=== PATIENT | female | born 1945 | race Caucasian/White ===

== ENCOUNTER 2016-10-16 19:38 | Emergency (ER) | payer OTHER, BC ==
[~2016-10-16] VITALS: Ht 157.5 cm; Wt 94.4 kg
[~2016-10-16 19:38] MED LIST changes: -NAPR1TAB9 PO; -OXGN; -OXYC-57 PO
[2016-10-16 19:47] VITALS: TEMP 36.3; Ht 157.5 cm; Wt 94.4 kg
[2016-10-16] MEDS ORDERED: ONDANSETRON 8 MG/54 ML D5W IV STA (20:47)
[2016-10-16 21:15] VITALS: O2SAT 96
[2016-10-16 21:33] LABS: HEMATOCRIT 37.6 % (37-47); MEAN CELL VOLUME 86.4 fL (80-100); MEAN CORPUSCULAR HGB CONC 33.5 g/dl (32-36); MEAN PLATELET VOLUME 9.6 fL (7.4-10.4); PLATELET COUNT 311 K/uL (130-400); RED BLOOD COUNT 4.35 M/uL (4.2-5.4); WHITE BLOOD COUNT 9.12 K/uL (4.8-10.8)
[2016-10-16 21:43] LABS: INR 0.9 (0.9-1.1); PARTIAL THROMBOPLASTIN RATIO 0.9; PROTHROMBIN TIME (PATIENT) 10.1 SECONDS (9.0-12.0)
[2016-10-16 22:02] LABS: ALB/GLOB RATIO 0.7 (0.9-2); ALKALINE PHOSPHATASE 71 U/L (45-117); BLOOD UREA NITROGEN 16 mg/dl (7-18); BUN/CREATININE RATIO 14.5 (10-20); CALCIUM 8.6 mg/dl (8.5-10.1); CARBON DIOXIDE 24 mmol/L (21-32); CHLORIDE 105 mmol/L (98-107); CKMB/CK RATIO 1.1 (0-3.0); POTASSIUM 3.7 mmol/L (3.5-5.1); SODIUM 142 mmol/L (136-145)
[2016-10-16 22:12] LABS: BASO % 0.2 %; BASO ABS # 0.02 K/uL (0-0.2); COMPLETE YES; IG% 0.3 %; LYMPH ABS # 4.56 K/uL (1.2-3.4); MONO % 6.7 %; NEUT % 40.8 %
[2016-10-16 22:22] LABS: ALT/SGPT 22 U/L (12-78); AST/SGOT 18 U/L (15-37); GLUCOSE 146 mg/dl (70-99)
--- NOTE | 2016-10-16 22:40 | DIAGNOSTIC IMAGING REPORT ---
BILATERAL LOWER EXTREMITY VENOUS DOPPLER CLINICAL HISTORY: Shortness of breath. Hypoxia. COMPARISON STUDY: No previous studies for comparison. TECHNIQUE: Sonography of the deep venous system of the bilateral lower extremities was performed. Compression and augmentation were evaluated. FINDINGS: The bilateral common femoral, superficial femoral and popliteal veins were compressible. Augmentation was normal. Flow was shown within the deep calf vessels. IMPRESSION: No evidence of deep venous thrombus within the bilateral lower extremities. Electronically signed by: Stalin Agosto M.D. 10/16/2016 10:39 PM Dictated Date/Time: 10/16/2016 10:39 PM
[2016-10-16] MEDS ORDERED: METOCLOPRAMIDE HCL INJ 5 MG/ML 2 ML VIAL IV STA (23:38)
[2016-10-16] MEDS ORDERED: METHYLPREDNISOLONE 125 MG VIAL IV STA (23:41)
[2016-10-16] MEDS ORDERED: OPTIRAY 320 IV PRN (23:45)
[2016-10-16] MEDS: DiphenhydrAMINE HCL 50 MG/ML VIAL IV STA (23:48)
[2016-10-17] MEDS: DiphenhydrAMINE HCL 50 MG/ML VIAL IV STA (00:04)
[2016-10-17 01:28] VITALS: BP 128/75; PULSE 78; O2SAT 95
--- NOTE | 2016-10-17 02:29 | EMERGENCY ROOM VISIT NOTE ---
History Report prepared by aJmal: Shadi Le Under the Supervision of: Dr. Luis Davis M.D. First contact with patient: 20:33 Chief Complaint: SHORTNESS OF BREATH Stated Complaint: SOB, HYPOXIA Nursing Triage Summary: see triage note. History of Present Illness The patient is a 71 year old female who presents to the Emergency Room with complaints of shortness of breath that began 6 months ago. Her shortness of breath worsens with exertion. The patient has a past medical history of Lymphoma. She had her first occurrence 8 or 9 years ago. She had a recent occurrence in Aug 2016. She had a 1.1 cm mass on a PET scan in her upper lobe of unilateral lung. The mass grew to 1.7 cm today. She just finished her fourth round of chemotherapy, due to her physician thinking that it could be lymphoma. She had a chest x-ray which was negative and a VQ scan with intermediate probability, before coming to the ER today. Due to the patient's shortness of breath, her physician was worried that the mass in her lung could be a PE. In their office today, the patient's O2 Sat was 94%. It has not gone below 90% that they area aware of. 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 She also has a cough. She does not have a history of blood clots. She does not take blood thinners. Patient denies LOC, headache, fevers, chills, diaphoresis, visual changes, neck pain, chest pain, nausea, abdominal pain, back pain, melena , hematochezia, urinary symptoms, numbness, weakness, lymphadenopathy, rash, or other complaints. Source of History: patient Onset: 6 months ago Position: other (Respiratory System) Symptom Intensity: mild Quality: other (shortness of breath) Modifying Factors (Worsening): exertion Associated Symptoms: + cough, + vomiting Review of Systems See HPI for pertinent positives and negatives. A total of ten systems were reviewed and were otherwise negative. Past Medical & Surgical Medical Problems: (1) Lymphoma (2) Port-a-cath in place Family History Not pertinent due to the patient's age. Social History Smoking Status: Never Smoker Smokeless Tobacco Use: No Drug Use: none Marital Status: Housing Status: lives with significant other Occupation Status: retired Current/Historical Medications Scheduled Metformin Hcl (Glucophage), 500 MG PO BID Solifenacin (Vesicare), 5 MG PO DAILY Allergies Uncoded Allergies: IV CONTRAST (Allergy, Unknown, vomiting and flushing, 09/23/15) Physical Exam Vital Signs Date Time Temp Pulse Resp B/P Pulse Ox O2 Delivery O2 Flow Rate FiO2 10/17/16 01:28 78 20 128/75 95 10/17/16 01:03 71 18 10/17/16 00:58 70 18 162/78 94 10/17/16 00:42 72 16 178/92 96 10/17/16 00:38 76 19 10/16/16 23:38 73 17 10/16/16 23:33 74 16 10/16/16 23:28 138/58 95 10/16/16 22:03 74 18 94 10/16/16 21:58 154/75 10/16/16 21:48 74 10/16/16 21:28 168/74 10/16/16 21:18 75 16 168/79 96 Room Air 10/16/16 21:15 96 Room Air 10/16/16 20:45 97 Room Air 10/16/16 19:47 36.3 86 18 159/73 97 Room Air Physical Exam GENERAL: Awake, alert, well-appearing, in no distress HENT: Normocephalic, atraumatic. Oropharynx unremarkable. EYES: Normal conjunctiva. Sclera non-icteric. NECK: Supple. No nuchal rigidity. FROM. No JVD. RESPIRATORY: Clear to auscultation. CARDIAC: Regular rate, normal rhythm. Extremities warm and well perfused. Pulses equal. ABDOMEN: Soft, non-distended. No tenderness to palpation. No rebound or guarding. No masses. RECTAL: Deferred. MUSCULOSKELETAL: Chest examination reveals no tenderness. No joint edema. LOWER EXTREMITIES: Calves are equal size bilaterally and non-tender. Mild bilateral edema. No discoloration. NEURO: Normal sensorium. No sensory or motor deficits noted. SKIN: No rash or jaundice noted. Medical Decision & Procedures ER Provider Diagnostic Interpretation: Radiology results are stated below per my review and radiologist interpretation: BILATERAL LOWER EXTREMITY VENOUS DOPPLER CLINICAL HISTORY: Shortness of breath. Hypoxia. COMPARISON STUDY: No previous studies for comparison. TECHNIQUE: Sonography of the deep venous system of the bilateral lower extremities was performed. Compression and augmentation were evaluated. FINDINGS: The bilateral common femoral, superficial femoral and popliteal veins were compressible. Augmentation was normal. Flow was shown within the deep calf vessels. IMPRESSION: No evidence of deep venous thrombus within the bilateral lower extremities. Electronically signed by: Stalin Agosto M.D. 10/16/2016 10:39 PM Dictated Date/Time: 10/16/2016 10:39 PM CTA CHEST: Comparison 04/10 No evidence for PE. Stable appearing airspace opacities abutting the mediastinum in the right middle lobe and right upper lobe. Likely atelectasis and/or scar. Bilateral ground-glass opacities. Appearance is similar to prior. May represent hypoventilatory changes/atelectasis. Hiatal hernia, mildly prominent upper abdominal nodes and other unchanged findings. Radiologist: Bari Dean M.D. Laboratory Results 10/16/16 21:02 Red Blood Count 4.35, Mean Corpuscular Volume 86.4, Mean Corpuscular Hemoglobin 29.0, Mean Corpuscular Hemoglobin Concent 33.5, Mean Platelet Volume 9.6, Neutrophils (%) (Auto) 40.8, Lymphocytes (%) (Auto) 50.0, Monocytes (%) (Auto) 6.7, Eosinophils (%) (Auto) 2.0, Basophils (%) (Auto) 0.2, Neutrophils # (Auto) 3.72, Lymphocytes # (Auto) 4.56, Monocytes # (Auto) 0.61, Eosinophils # (Auto) 0.18, Basophils # (Auto) 0.02 10/16/16 21:02 Test 10/16/16 21:02 White Blood Count 9.12 K/uL (4.8-10.8) Red Blood Count 4.35 M/uL (4.2-5.4) Hemoglobin 12.6 g/dL (12.0-16.0) Hematocrit 37.6 % (37-47) Mean Corpuscular Volume 86.4 fL (80-100) Mean Corpuscular Hemoglobin 29.0 pg (25-34) Mean Corpuscular Hemoglobin Concent 33.5 g/dl (32-36) Platelet Count 311 K/uL (130-400) Mean Platelet Volume 9.6 fL (7.4-10.4) Neutrophils (%) (Auto) 40.8 % Lymphocytes (%) (Auto) 50.0 % Monocytes (%) (Auto) 6.7 % Eosinophils (%) (Auto) 2.0 % Basophils (%) (Auto) 0.2 % Neutrophils # (Auto) 3.72 K/uL (1.4-6.5) Lymphocytes # (Auto) 4.56 K/uL (1.2-3.4) Monocytes # (Auto) 0.61 K/uL (0.11-0.59) Eosinophils # (Auto) 0.18 K/uL (0-0.5) Basophils # (Auto) 0.02 K/uL (0-0.2) RDW Standard Deviation 44.8 fL (36.4-46.3) RDW Coefficient of Variation 14.4 % (11.5-14.5) Immature Granulocyte % (Auto) 0.3 % Immature Granulocyte # (Auto) 0.03 K/uL (0.00-0.02) Prothrombin Time 10.1 SECONDS (9.0-12.0) Prothromb Time International Ratio 0.9 (0.9-1.1) Activated Partial Thromboplast Time 22.2 SECONDS (21.0-31.0) Partial Thromboplastin Ratio 0.9 Anion Gap 13.0 mmol/L (3-11) Est Creatinine Clear Calc Drug Dose 50.2 ml/min Estimated GFR () 58.5 Estimated GFR (Non- 50.5 BUN/Creatinine Ratio 14.5 (10-20) Calcium Level 8.6 mg/dl (8.5-10.1) Total Bilirubin 0.3 mg/dl (0.2-1) Aspartate Amino Transf (AST/SGOT) 18 U/L (15-37) Alanine Aminotransferase (ALT/SGPT) 22 U/L (12-78) Alkaline Phosphatase 71 U/L (45-117) Total Creatine Kinase 76 U/L (26-192) Creatine Kinase MB 0.8 ng/ml (0.5-3.6) Creatine Kinase MB Ratio 1.1 (0-3.0) Troponin I < 0.015 ng/ml (0-0.045) Pro-B-Type Natriuretic Peptide 52 pg/ml (0-900) Total Protein 7.6 gm/dl (6.4-8.2) Albumin 3.1 gm/dl (3.4-5.0) Globulin 4.5 gm/dl (2.5-4.0) Albumin/Globulin Ratio 0.7 (0.9-2) Laboratory results reviewed by me Medications Administered Medications (Trade) Dose Ordered Sig/Jerrica Route Start Time Stop Time Status Last Admin Dose Admin Ondansetron HCl (Zofran 8mg Iv) 8 mg NOW STAT IV 10/16/16 20:47 10/16/16 20:50 DC 10/16/16 21:30 8 MG Metoclopramide HCl (Reglan Inj) 10 mg NOW STAT IV 10/16/16 23:38 10/16/16 23:39 DC 10/16/16 23:49 10 MG Methylprednisolone Sodium Succinate (Solu-Medrol IV) 125 mg NOW STAT IV 10/16/16 23:41 10/16/16 23:42 DC 10/16/16 23:49 125 MG ECG Indication: SOB/dyspnea Rate (beats per minute): 73 Rhythm: normal sinus Findings: no acute ischemic change, no ectopy ED Course 2032: The patient was evaluated in room C6. A complete history and physical exam was performed. 2046: Ondansetron HCl 8 mg IV 2338: Benadryl Inj 25 mg IV, Reglan Inj 10 mg IV 2341: Methylprednisolone Sodium Succinate 125 mg IV 0141: I reevaluated the patient. Discussed results and discharge instructions: She verbalized understanding and agreement. She will be following up with her oncologist. The patient is ready for discharge. Medical Decision Triage Nursing notes reviewed. The patient's presentation and history were concerning for shortness of breath. Etiologies such as pneumonia, COPD, reactive airway disease, CHF, cardiac ischemia, pulmonary embolism, pneumothorax, musculoskeletal, infections, gastrointestinal, as well as others were entertained. The patient presented with an indeterminate VQ scan. She had blood work obtained. She had a negative CBC, coagulation factors, chemistry panel, LFTs, and cardiac markers. BNP was negative. Her outpatient chest x-ray was also unremarkable. ECG was negative. the patient had negative bilateral lower leg ultrasounds. She underwent CT imaging and this did not reveal any evidence of PE or dissection. Scarring and chronic changes noted. This was discussed with the patient and her . She was very pleased. I encouraged her to follow- up tomorrow with her simplex operator. If she worsens in any way she will come back. Vital signs are relatively stable except for mild hypertension. I did discuss this with her. By the evaluation outlined above other emergent etiologies such as those listed in the differential, as well as others, were deemed relatively unlikely. The patient and were informed about the findings as listed above. All questions were answered and they were pleased with the treatment. Return instructions were outlined and the patient was discharged in stable condition. The patient was referred to her primary and hematology for follow-up for a recheck of the current condition. The chart was completed utilizing [employer] Speech voice recognition software. Grammatical errors, random word insertions, pronoun errors, and incomplete sentences are an occasional consequence of this system due to software limitations, ambient noise, and hardware issues. Any formal questions or concerns about the content, text, or information contained within the body of this dictation should be directly addressed to the physician for clarification. Impression Primary Impression: SOB (shortness of breath) Scribe Attestation The scribe's documentation has been prepared under my direction and personally reviewed by me in its entirety. I confirm that the note above accurately reflects all work, treatment, procedures, and medical decision making performed by me. Departure Information Dispostion Home / Self-Care Referrals Raz Buenrostro M.D. (PCP) Galo Peralta D.O. Forms HOME CARE DOCUMENTATION FORM, IMPORTANT VISIT INFORMATION Patient Instructions [facility] Additional Instructions Continue current medications. Follow-up with oncology tomorrow to inform them of the results. Return to the ER for chest pain, difficulty breathing, fevers, vomiting, worsening of your condition, or as needed.
--- NOTE | 2016-10-17 07:53 | DIAGNOSTIC IMAGING REPORT ---
CHEST CTA for PULMONARY ARTERIES CT DOSE: 485.66 mGy.cm HISTORY: Short of breath. TECHNIQUE: Multiaxial CT images of the chest were performed following the intravenous administration of contrast to evaluate the pulmonary arteries. Maximal intensity projection images were also obtained. COMPARISON STUDY: Chest CT 04/10/2016. FINDINGS: There is a normal caliber thoracic aorta with no evidence for dissection. There is no evidence for pulmonary embolus. No pleural effusions. No pneumothorax. The liver and spleen are unremarkable. There is a mosaic attenuation to the lungs suggestive of air trapping. This can be seen in the setting of small airways disease. There is a 4 mm nodule within the left upper lobe on image 145. There are few groundglass/patchy densities seen within the lingula. Focal airspace opacity within the right upper lobe medially. This is slightly irregular and measures 1.9 cm. There is also a focal airspace opacity within the medial aspect of the right middle lobe which measures 1.9 cm. These focal airspace opacities are similar to the prior study. The 4 mm nodule within the lingula is also stable. The central airways are patent. No suspicious lytic or blastic osseous lesions. Partially visualized prominent gastrohepatic lymph nodes are again noted. Left subclavian Port-A-Cath terminates in the SVC. The heart is normal in size. IMPRESSION: 1. No evidence for pulmonary embolus. 2. Focal irregular 1.9 cm opacity within the medial aspect of the right upper lobe persists. This is unchanged since the 04/10/2016 examination. Therefore, this could represent scarring or a primary bronchogenic malignancy. Pulmonary consultation and/or a [address] follow-up should be performed for further evaluation . There is also stable 1.9 cm focal airspace opacity within the medial to the right middle lobe. 3. Mildly enlarged gastrohepatic lymph nodes are partially visualized on this study. These do not appear to be significantly changed. 4. Mosaic attenuation to the lungs suggestive of air trapping in the setting of small airways disease. This is also unchanged. Electronically signed by: Ronald Ames M.D. 10/17/2016 7:52 AM Dictated Date/Time: 10/17/2016 7:41 AM
[2017-03-29] MEDS ORDERED: NAPR1TAB9 PO (08:11)
[2017-03-29] MEDS ORDERED: OXGN (08:31)
[2017-05-30] MEDS ORDERED: OXYC-57 PO (16:44)
== END 2016-10-17 01:40 | disposition home or self-care (01) ==
LOC: C.EDB 19:40 → C.EDC 10-17 01:40
DX: R06.02 Shortness of breath (principal); C85.90 Non-Hodgkin lymphoma, unspecified, unspecified site; I10 Essential (primary) hypertension; R05 Cough; Z85.72 Personal history of non-Hodgkin lymphomas; Z86.2 Personal history of diseases of the blood and blood-forming organs and certain disorders involving the immune mechanism; Z79.84 Long term (current) use of oral hypoglycemic drugs; Z79.899 Other long term (current) drug therapy; Z91.041 Radiographic dye allergy status; C88.0 Waldenstrom macroglobulinemia

== ENCOUNTER → 2016-10-16 | Outpatient (CLI) | payer OTHER, BC ==
[~2016-10-16] MED LIST: GLC/500 PO; LIDO2SOL17; NAPR1TAB9 PO; OXGN; OXYC-57 PO; VSC/5 PO
--- NOTE | 2016-10-16 17:21 | DIAGNOSTIC IMAGING REPORT ---
CHEST 2 VIEWS ROUTINE CLINICAL HISTORY: Shortness of breath. COMPARISON STUDY: Chest CT April 10, 2016. FINDINGS: A left subclavian [id number] is in place. There is no pneumothorax or pleural effusion. Mild cardiomegaly is unchanged. There is no evidence of pulmonary edema. No consolidation is identified. There are cholecystectomy clips. Mild elevation of the right hemidiaphragm is unchanged per IMPRESSION: No acute cardiopulmonary findings. No change in appearance of the chest. Electronically signed by: Stalin Agosto M.D. 10/16/2016 5:20 PM Dictated Date/Time: 10/16/2016 5:18 PM
--- NOTE | 2016-10-16 19:31 | DIAGNOSTIC IMAGING REPORT ---
NUCLEAR MEDICINE VENTILATION/PERFUSION SCAN CLINICAL HISTORY: Shortness of breath. Hypoxia. COMPARISON: Chest radiograph October 06, 2016. TECHNIQUE: For the ventilation portion of this exam, 32.4 mCi of DTPA was inhaled at 6:30 PM on October 16, 2016. Immediately following inhalation, imaging of the chest was carried out in the anterior, posterior, left lateral, right lateral, LPO, RPO, ARVIND and MOISE projections. For the perfusion portion of exam, 6 mCi of technetium 99m MAA was injected IV at 7 p.m. on October 16, 2016. Immediately following injection, imaging of the chest was carried out in the same projections. FINDINGS: Ingested radiotracer is noted on the ventilation portion of this exam. There is a small defect on the perfusion images within the apicoposterior segment of the left upper lobe. This appears mismatched. No large mismatch defects are identified. The ventilation portion of this study is mildly compromised due to artifact. This study is considered intermediate probability for pulmonary embolus. IMPRESSION: Intermediate probability for pulmonary embolus. Electronically signed by: Stalin Agosto M.D. 10/16/2016 7:29 PM Dictated Date/Time: 10/16/2016 7:25 PM
== END | disposition home or self-care (01) ==
LOC: C.RAD 16:52
PROVIDERS: ATTEND Internal Medicine Hematology & Oncology
DX: R09.02 Hypoxemia (principal); R06.02 Shortness of breath

== ENCOUNTER → 2017-05-20 | Outpatient (CLI) | payer OTHER, BC ==
[~2017-05-20] MED LIST changes: -LIDO2SOL17; +NAPR1TAB9 PO; +OPTIRAY 320 IV PRN; +OXGN; +OXYC-57 PO
--- NOTE | 2017-05-20 11:40 | DIAGNOSTIC IMAGING REPORT ---
CT VENOGRAM OF THE CHEST WITH CONTRAST CLINICAL HISTORY: LYMPHOMA,WALDENSTROM MACROGLOBULINEMIA. Central venous stenosis/thrombus. COMPARISON STUDY: Chest CT T October 17, 2016. TECHNIQUE: The patient was premedicated for an IV dye allergy. Helical axial images of the chest were obtained during venous phase following intravenous injection of 93 cc of Optiray 320 IV. Sagittal and coronal reconstructions were viewed as well as maximal intensity projections on an independent 3-D workstation. FINDINGS: A left subclavian [id number] is in place. There is a small amount of thrombus measuring 7 mm adherent to the catheter at the level of the proximal SVC. No additional central venous thrombus is identified. The central veins are patent. There is mild narrowing of the bilateral internal jugular veins. These vessels are patent. The heart is mildly enlarged. There is no pericardial effusion. There are no enlarged thoracic lymph nodes. An irregular 1.9 cm subpleural right upper lobe nodular opacity shown on image 94 of 326 is unchanged since prior chest CT as well as chest CT of April 10, 2016. An irregular 1.8 cm subpleural opacity within the anterior segment of the right upper lobe or the medial lobe shown on image 163 is also unchanged. There are groundglass opacities with mosaic attenuation within the lungs. There is no pneumothorax or pleural effusion. The central airways are patent. There are no suspicious osseous lesions. Fatty infiltration of the liver is noted. The gallbladder surgically absent. Upper abdominal lymphadenopathy has improved since exam of April 10, 2016. A 1.6 x 1 cm lymph node along the greater curvature of the stomach has moderately decreased in size. Additional enlarged upper abdominal lymph node shown on prior CT have improved. IMPRESSION: 1. Left subclavian [id number] in place. Small amount of thrombus adherent to the catheter at the level of the proximal SVC. No additional sites of central venous thrombus. Patent central veins. 2. No change in the 1.9 cm subpleural right upper lobe nodular opacity since prior CT. This remains indeterminate and may reflect a bronchogenic carcinoma. Scarring could appear similar. Pulmonary consultation is recommended. No change in the additional 1.8 cm subpleural opacity either within the anterior segment of the right upper lobe or right middle lobe which favors scarring. 3. Interval improvement in upper abdominal lymphadenopathy since CT of April 10, 2016. Electronically signed by: Stalin Agosto M.D. 05/20/2017 11:28 AM Dictated Date/Time: 05/20/2017 11:09 AM
== END | disposition home or self-care (01) ==
LOC: C.CTS 10:31
PROVIDERS: ATTEND Physician Assistant
DX: C88.0 Waldenstrom macroglobulinemia (principal); C85.90 Non-Hodgkin lymphoma, unspecified, unspecified site

== ENCOUNTER 2017-05-30 12:34 | Day surgery (SDC) | payer OTHER, BC ==
[~2017-05-30] VITALS: Ht 157.5 cm; Wt 91.0 kg
--- NOTE | 2017-05-30 08:52 | History and Physical ---
History & Physical Date of Service May 30, 2017. History & Physical CC: Non functioning infusaport HPI: Mrs. Kaur states that she had her first port placed around 2006 for treatment for non-Hodgkin's lymphoma and Waldenstrom macroglobulinemia. She states that it was removed shortly after due to concern for possible infection, although it never grew anything and the cultures. She states in 2009, she had a new one placed. Both of these ports had been on her left side of her chest. She does state that she is aware of a small lesion in her right apex of her lung , which was discussed with her family physician, as well as her oncologist they and decided to not perform any focused treatment on that, as they do not believe that it is cancerous. She states that approximately 2 months ago, they began having problems drawing any blood from her left chest Infusaport and while they could still infuse into it, they were unable to draw from it at all and she had it placed partially for blood draw purposes. This is very bothersome for her and she would like to have a new one placed. She denies any other complaints at this time including headaches, fevers, chills, dizziness, chest pain, shortness of breath, abdominal pain, nausea, vomiting, diarrhea, constipation, dysuria, hematuria, rest pain, claudication, nonhealing wounds or ulcers, or other complaints. ALLERGIES: IODINE-BASED CONTRAST MEDIA. MEDICATIONS: Lanacane, metformin, and VESIcare. PAST MEDICAL HISTORY: Positive for Waldenstrom macroglobulinemia and non- Hodgkin's lymphoma. PAST SURGICAL HISTORY: Positive for lymph node biopsy, cholecystectomy, hysterectomy, stomach surgery, and tonsillectomy. FAMILY HISTORY: Positive for cardiac arrest, heart attack, and heart disease in her brother, congestive heart failure and Parkinson's disease in her mother, CA in her father, diabetes and stroke in other individuals. SOCIAL HISTORY: Negative for tobacco, alcohol, or drug use. REVIEW OF SYSTEMS: Negative for fatigue, fevers, sweats, weight loss, exercise intolerance, abnormal moles or rashes, vision changes, photophobia, ear pain, sinus problems, sore throat, cough, shortness of breath, hemoptysis or wheezing , chest pain, palpitations, edema or syncope, abdominal pain, nausea, vomiting, diarrhea, constipation, dysuria, hematuria, muscle weakness, headaches, dizziness, numbness, or seizures. PHYSICAL EXAMINATION: Her vital signs are as follows: Blood pressure 116/82 in the right arm, 118/78 in the left, heart rate of 75, oxygenation 98% on room air. The patient is 157.48 cm tall and weighs 90.72 kilograms. Constitutional : In general, the patient is a healthy-appearing, for age, well-nourished, well -developed, middle-aged female in no acute distress. She ambulates without assistance and is active, alert and oriented x4 with normal recent and remote memory. Head is normocephalic and atraumatic. Eyes are EOMI. ENMT exam demonstrates no hearing loss, rhinorrhea, or pharyngeal erythema. Neck is supple, nontender with midline trachea without masses or crepitus. Lung exam demonstrates no dyspnea. They are clear to auscultation bilaterally. Cardiovascular exam demonstrates nondisplaced apical impulse with a regular rate and rhythm without murmurs, lifts, heaves, thrills, or gallops. Peripheral pulses are full and equal in all extremities unless otherwise noted. Specifically, they are normal in her carotid, brachial, radial, and pulses. Bilateral lower extremity distal pulses are +1. She has a brisk capillary refill and no signs of ischemia. Abdomen is soft, nontender with normoactive bowel sounds in all 4 quadrants without guarding or rebound. There is no flank or CVA tenderness. Her musculoskeletal exam demonstrates normal tone and strength for age. Bilateral upper extremities demonstrate no cyanosis , edema, clubbing, varicosities, or ulcers. Bilateral lower extremities demonstrate no cyanosis, edema, clubbing, varicosities, or ulcers. Neurologically, patient has grossly intact cranial nerves and grossly intact sensation. ASSESSMENT AND PLAN: 1. Non-Hodgkin's lymphoma. 2. Waldenstrom macroglobulinemia. 3. Malfunctioning Infusaport. PLAN: Patient is admitted for removal of her infusaport and placement of a new one. I have discussed the risks options and benefits of the procedure with the patient. The patient understands the risks options and benefits and agrees to the procedure.
[~2017-05-30 12:34] MED LIST changes: +CEFAZOLIN 1000MG/55 ML D5W IV SCH; +NSS 1000ML IV SCH; -OPTIRAY 320 IV PRN; -OXYC-57 PO; +SODIUM CHLORIDE 0.9% 1000ML IV SCH
--- NOTE | 2017-05-30 12:49 | History & Physical Bridge Note ---
H&P Re-Evaluation Bridge Note: I have examined the patient, reviewed the History & Physical and in the interval since the performance of the History & Physical I have noted the following changes of clinical significance: No changes noted
--- NOTE | 2017-05-30 12:49 | Procedure Note ---
Pre-Mod Sedation Assessment General Date of Moderate Sedation: May 30, 2017. Pre-Sedation Airway Assessment Smoking Status: Never Smoker Mallampati Classification: Class I ASA Classification: Class II Notes The planned sedation has been discussed with the patient and consent obtained. I have identified the patient, determined the appropriateness of sedation and have assessed the patient immediately prior to the procedure. All medicine(s) and interventions are by my order.
[2017-05-30 12:56] VITALS: BP 161/73; PULSE 72; TEMP 36.4; O2SAT 94; Ht 157.5 cm; Wt 91.0 kg
[2017-05-30] MEDS ORDERED: LIDOCAINE HCL 1% 20 ML VIAL ONE (14:20)
[2017-05-30] MEDS ORDERED: FENTANYL CITRATE INJ 50 MCG/1 ML 2 ML VIAL ONE (14:20)
[2017-05-30] MEDS ORDERED: MIDAZOLAM HCL 1 MG/ML 2ML VIAL ONE ×2 (14:20→15:30)
[2017-05-30] MEDS ORDERED: BUPIVACAINE 0.5 % 5 MG/1 ML MPF 30ML VIAL ONE (14:21)
[2017-05-30] MEDS: CEFAZOLIN 1000MG/55 ML D5W 55 ML IV SCH ×2 (14:25→14:44)
[2017-05-30 14:26] VITALS: BP 161/73; PULSE 72; TEMP 36.4; O2SAT 94
[2017-05-30] MEDS ORDERED: FENTANYL CITRATE INJ 50 MCG/1 ML 2 ML VIAL IV ONE ×2 (14:57→15:31)
[2017-05-30] MEDS ORDERED: MIDAZOLAM HCL 1 MG/ML 2ML VIAL IV ONE ×2 (14:57→15:31)
[2017-05-30] MEDS ORDERED: LIDOCAINE HCL 1% 20 ML VIAL INJ ONE ×2 (15:01→15:02)
[2017-05-30] MEDS ORDERED: BUPIVACAINE 0.5 % 5 MG/1 ML MPF 30ML VIAL INJ ONE ×2 (15:01→15:02)
[2017-05-30] MEDS ORDERED: BUPIVACAINE/EPINEPHRINE 0.5% MPF 1:200,000 30 ML VIAL INJ ONE ×2 (15:01→15:02)
[2017-05-30] MEDS ORDERED: BUPIVACAINE/EPINEPHRINE 0.5% MPF 1:200,000 10 ML VIAL ONE (15:15)
[2017-05-30] MEDS ORDERED: LIDOCAINE HCL 1% 20 ML VIAL INFIL ONE (15:39)
[2017-05-30] MEDS ORDERED: BUPIVACAINE/EPINEPHRINE 0.5% MPF 1:200,000 30 ML VIAL INFIL ONE (15:39)
--- NOTE | 2017-05-30 16:27 | [facility] Operative Report ---
Operative Report Operative Date May 30, 2017. Pre-Operative Diagnosis Malfunctioning Infusaport Post-Operative Diagnosis Same Procedure(s) Performed Removal of Infusaport Insertion of Infusaport, Right Jugular Approach Ultrasound Localization of Right Jugular Vein Fluoroscopy for Positioning Moderate Sedation 6730-2132 Surgeon Andie Lab Clerk Surgeon(s) Dr. Moran, Fellow Estimated Blood Loss 5 Findings both port aspirate and flush easily Specimens a; Infusaport Anesthesia Local with sedation Complication(s) None Disposition Indications Ms. Kaur is a 72 y/o female with a dual chamber aport that currently is malfunctioning due to clot at the tip of the catheter. She was advised of the risk and benefits of port removal and replacement on the contralateral side. She agreed to the above procedures. Description of Procedure .Patient was taken to the angio suite and placed in the supine position. The left side of the neck and chest wall were prepped and draped in a sterile manner. Local anesthesia was then administered to the appropriate areas of the neck and chest wall. A transverse incision was made below the clavicle on the chest wall in the line of the old incision. Bleeding was controlled using cautery. Using sharp and blunt dissection the port and fibrin sheath were dissected free and removed. The catheter slid out easily. Adequate hemostasis was then obtained. Once adequate hemostasis was noted the wound was then closed. The incision was closed using a 3-0 Vicryl suture for the subcutaneous layer and a 4-0 Vicryl subcuticular stitch for the skin layer. Dermabond was used for a dressing on the incision. Pressure was applied to the catheter site over the internal jugular vein. The patient left the angio suite in good condition and tolerated the procedure well. Patient was takent to the angio suite and placed in the supine position. The right side of the neck and chest wall were prepped and draped in a sterile manner. Local anesthesia was then administered to the appropriate areas of the neck and chest wall. A transverse incision was made below the clavicle on the chest wall and an inferior pocket was make. Bleeding was controlled using cautery. Ultrasound was then used to locate the right internal jugular vein. The vein compressed easily, had no filing defects, and was patent. The vein was then punctured under direct ultrasound imaging. A guidewire was then passed centrally under fluoroscopic imaging. The port catheter was then passed from the pocket incision to the puncture site in the neck using the tunneling device. The peel away sheath was inserted. The catheter was then beveled at the tip and inserted through the peel away sheath. The tip was then positioned in the distal SCV. It was then attached to the port and the catheter clamp applied. The port was then placed in the pocket and sutured to the chest fascia using prolene suture. The puncture site was then closed using a 4-0 Vicryl subcuticular suture. The chest incision was closed using a 3-0 Vicryl suture for the subcutaneous layer and a 4-0 Vicryl subcuticular stitch for the skin layer. Dermabond was used for a dressing on the puncture site and the incision. The port aspirated and flushed easily and was then flushed with heparinized saline. The patient left the angio suite in good condition and tolerated the procedure well. I attest to the content of the Intraoperative Record and any orders documented therein. Any exceptions are noted below.
[2017-05-30 16:40] VITALS: BP 186/80; PULSE 68; TEMP 36.4; O2SAT 98
--- NOTE | 2017-05-30 16:42 | Procedure Note ---
Post-Moderate Sedation Plan General Date of Moderate Sedation May 30, 2017. Vital Signs: Vital Signs Past 12 Hours Date Time Temp Pulse Resp B/P (MAP) Pulse Ox O2 Delivery O2 Flow Rate FiO2 05/30/17 14:26 36.4 72 18 161/73 94 Room Air 05/30/17 12:56 36.4 72 18 161/73 (102) 94 Room Air Review - Discharge Plan Post Moderate Sedation Plan: On clinical assessment, the patient appears to have tolerated the conscious sedation without complications. Patient is recovering as anticipated. Patient will continue to be monitored by nursing and may be discharged when conscious sedation discharge criteria are met.
[2017-05-30] MEDS ORDERED: OXYC-57 PO (16:44)
--- NOTE | 2017-05-30 16:46 | Discharge Instructions ---
Discharge Instructions Date of Service May 30, 2017. Visit Reason for Visit: Waldenstrom's Macroglobulinemia, Non-Hodgkin's Lym Discharge Discharge Diagnosis / Problem: Malfunctioning infusaport Discharge Goals Goal(s): Therapeutic intervention Activity Recommendations Activity Limitations: per Instructions/Follow-up section Shower/Bathe: tomorrow Anesthesia . Post Anesthesia Instructions: If you have had General Anesthesia or IV Sedation: * Do not drive today. * Resume driving when surgeon permits. * Do not make important decisions or sign legal documents today. * Call surgeon for: 1. Temperature elevations greater than 101 degrees F. 2. Uncontrollable pain. 3. Excessive bleeding. 4. Persistent nausea and vomiting. 5. Medication intolerance (nausea, vomiting or rash). * For nausea and vomiting use only clear liquids such as: tea, soda, bouillon until nausea subsides, then gradually increase diet as tolerated. * If you have any concerns or questions, call your surgeon's office. If physician is unavailable and it is an emergency, call 911 or go to the nearest emergency room. . Instructions / Follow-Up Instructions / Follow-Up ACTIVITY RECOMMENDATIONS: See Above SPECIAL CARE INSTRUCTIONS: Call your doctor if: * Temperature above 101 degrees * Pain not relieved by pain medicine ordered * There is increased drainage or redness from any incision * You have any unanswered questions or concerns. Diet Recommendations Recommended Home Diet: resume previous diet Procedures Procedures Performed: Removal of Infusaport Insertion of Infusaport, Right Jugular Approach Ultrasound Localization of Right Jugular Vein Fluoroscopy for Positioning Moderate Sedation [id number] Pending Studies Studies pending at discharge: no Medical Emergencies . Who to Call and When: Medical Emergencies: If at any time you feel your situation is an emergency, please call 911 immediately. . Non-Emergent Contact Non-Emergency issues call your: Surgeon . . "Provider Documentation" section prepared by Juma Chaves. .
[2017-05-30] MEDS ORDERED: PERCOCET HOME PACK PO ONE (17:00)
== END 2017-05-30 17:35 | disposition home or self-care (01) ==
LOC: C.ACU 12:34
PROVIDERS: ATTEND Surgery Vascular Surgery
DX: C85.90 Non-Hodgkin lymphoma, unspecified, unspecified site (principal); C88.0 Waldenstrom macroglobulinemia